=== PATIENT | female | born 1950 | race Two or more races ===

== ENCOUNTER 2018-05-28 08:19 | Outpatient (CLI) | payer OTHER | END 2018-05-28 08:31 | disposition home or self-care (01) | LOC: LAB 08:19 | DX: Z86.010 Personal history of colon polyps (principal) ==

== ENCOUNTER 2018-06-06 09:35 | Day surgery (SDC) | payer OTHER | END 2018-06-06 15:57 | disposition home or self-care (01) | LOC: AMB-ENDOS 09:35 | DX: D12.3 Benign neoplasm of transverse colon (principal) ==